=== PATIENT | female | born 1960 | race Caucasian/White ===

== ENCOUNTER 2024-09-19 21:44 | Inpatient (IN) | payer MEDICARE, MEDICAID ==
[~2024-09-19] VITALS: Ht 160 cm; Wt 90.7 kg
[2024-09-19 23:42] LABS: COVID AG,FIA SOURCE NASAL SWAB
[2024-09-19 23:49] LABS: BASOPHILS % (AUTO) 0.6 % (0.0-2.0); EOSINOPHILS % (AUTO) 5.3 % (1.0-6.0); HEMATOCRIT 41.9 % (36-46); HEMOGLOBIN 14.3 g/dL (12.0-16.0); LYMPHOCYTES # (AUTO) 1.3 K/uL (1.0-4.8); MEAN CORPUSCULAR HGB CONC 34.2 G/dL (31.0-37.0); MEAN CORPUSCULAR VOLUME 91 fL (80-100); MONOCYTES # (AUTO) 0.3 K/uL (0.1-1.0); NEUTROPHILS # (AUTO) 2.3 K/uL (1.8-7.7); NEUTROPHILS % (AUTO) 55.1 % (40.0-70.0); PLATELET COUNT (AUTO) 108 K/uL (150-450); RED BLOOD CELL COUNT(AUTO) 4.62 MIL/uL (4.00-5.20); RED CELL DISTRIBUTION WIDTH 13.4 % (11.5-14.5); WHITE BLOOD COUNT (AUTO) 4.1 K/uL (4.5-11.0)
[2024-09-19 23:52] LABS: ANION GAP 7 mmol/L (8-16); CALCIUM, TOTAL 9.1 mg/dL (8.8-10.5); CARBON DIOXIDE 29 mmol/L (22-29); CHLORIDE 103 mmol/L (98-107); CREATININE 0.65 mg/dL (0.60-1.30); GLOMERULAR FILTR. RATE CALC > 60 mL/min (>60); GLUCOSE,RANDOM 105 mg/dL (70-110); POTASSIUM 4.1 mmol/L (3.5-5.1); SODIUM SERUM 139 mmol/L (136-145); UREA NITROGEN, BLOOD 8 mg/dL (7-18)
[2024-09-19 23:54] LABS: SARS-COV2 (COVID) ANTIGEN,FIA Negative (Negative)
[2024-09-19 23:57] LABS: ALCOHOL, BLOOD (SERUM) < 3 mg/dL (0-10)
[2024-09-20 01:42] LABS: PH,URINE DRUG SCREEN 5.5 (5.0-8.0)
[2024-09-20 01:52] LABS: AMPHET/METH SCREEN,URINE NEGATIVE (NEGATIVE); BARBITURATE SCREEN, URINE NEGATIVE (NEGATIVE); BENZODIAZEPINES SCREEN,URINE NEGATIVE (NEGATIVE); CANNABINOID SCREEN,URINE NEGATIVE (NEGATIVE); COCAINE SCREEN,URINE NEGATIVE (NEGATIVE); METHADONE SCREEN, URINE NEGATIVE (NEGATIVE); OPIATE SCREEN,URINE NEGATIVE (NEGATIVE); PHENCYCLIDINE SCREEN,URINE NEGATIVE (NEGATIVE)
[2024-09-20 01:55] LABS: ALCOHOL, URINE DRUG SCREEN NEGATIVE (NEGATIVE)
[2024-09-20] MEDS ORDERED: MAGNESIUM HYDROXIDE SUSPENSION 30 ML UDCUP PO PRN (06:00)
[2024-09-20] MEDS ORDERED: HALOPERIDOL 5 MG TABLET PO PRN (06:00)
[2024-09-20] MEDS ORDERED: LOPERAMIDE HCL 2 MG CAPSULE PO PRN (06:00)
[2024-09-20] MEDS ORDERED: MAG HYDROX/ALUMINUM HYD/SIMETH ES 30 ML SUSPENSION UDCUP PO PRN (06:00)
[2024-09-20] MEDS ORDERED: LORazepam 2 MG TABLET PO PRN (06:00)
[2024-09-20 06:25] LABS: APPEARANCE,URINE CLEAR (CLEAR); BILIRUBIN,URINE NEGATIVE (NEGATIVE); COLOR,URINE YELLOW (YELLOW); GLUCOSE, URINE (UA) NEGATIVE (NEGATIVE); KETONES,URINE TRACE mg/dL (NEGATIVE); LEUKOCYTE ESTERASE ,URINE SMALL (NEGATIVE); NITRATE,URINE NEGATIVE (NEGATIVE); OCCULT BLOOD,URINE NEGATIVE (NEGATIVE); PH,URINE 6.5 (5.0-8.0); PROTEIN,URINE TRACE mg/dL (NEGATIVE); SPECIFIC GRAVITIY, URINE 1.023 (1.003-1.030); UROBILINOGEN,URINE <=1.0 mg/dL (<=1.0)
[2024-09-20 06:49] LABS: BACTERIA,URINE None Seen /HPF (None Seen); RBC,URINE None Seen /HPF (0-2); SQUAMOUS EPITHELIAL CELL,UR Few /LPF (None Seen)
[2024-09-20 08:00] VITALS: O2SAT 96
[2024-09-20] MEDS: ACETAMINOPHEN 325 MG TABLET PO PRN (09:22)
[2024-09-20 12:45] VITALS: BP 116/60; PULSE 77; RESP 18; TEMP 97.8; O2SAT 96
[2024-09-20 20:59] VITALS: RESP 18
[2024-09-21 01:04] VITALS: BP 132/65; PULSE 83; RESP 16; TEMP 97.2; O2SAT 97
[2024-09-21] MEDS ORDERED: ONDANSETRON 4 MG TABLET PO PRN (06:45)
[2024-09-21] MEDS ORDERED: LOPERAMIDE HCL 2 MG CAPSULE PO PRN (06:45)
[2024-09-21] MEDS ORDERED: ALBUTEROL SULFATE HFA 90 MCG/PUFF 8 GM INHALER IH PRN (06:45)
[2024-09-21] MEDS ORDERED: CloNIDine HCL 0.1 MG TABLET PO PRN (06:45)
[2024-09-21] MEDS ORDERED: MAGNESIUM HYDROXIDE SUSPENSION 30 ML UDCUP PO PRN (06:45)
[2024-09-21] MEDS ORDERED: DOCUSATE SODIUM 100 MG CAPSULE PO PRN (06:45)
[2024-09-21] MEDS ORDERED: MAG HYDROX/ALUMINUM HYD/SIMETH ES 30 ML SUSPENSION UDCUP PO PRN (06:45)
[2024-09-21] MEDS ORDERED: GuaiFENesin/D-METHORPHAN [SUGAR-FREE] 200-20MG/10 ML SYRUP UDCUP PO PRN (06:45)
[2024-09-21] MEDS ORDERED: IBUPROFEN 400 MG TABLET PO PRN (06:45)
[2024-09-21] MEDS ORDERED: ACETAMINOPHEN 325 MG TABLET PO PRN (06:45)
[2024-09-21 08:06] VITALS: BP_SYST 147; BP_SYST 177; BP_DIAS 90; PULSE 90; RESP 16; TEMP 97.6; O2SAT 96
[2024-09-21] MEDS: INFLUENZA VIRUS VACCINE TVS (6MO+) 2024-25/PF 45 MCG/0.5 ML SYRINGE IM. ONE (17:56)
[2024-09-21] MEDS: PNEUMOCOCCAL VACCINE POLYVALENT 0.5 ML SYRINGE [PPSV23] IM. ONE (17:57)
[2024-09-21 20:07] VITALS: BP 131/78; PULSE 90; RESP 16; TEMP 97.6; O2SAT 97
[2024-09-21 21:28] VITALS: RESP 17
[2024-09-21] MEDS: TraZODone HCL 100 MG TABLET PO SCH (21:53)
[2024-09-21] MEDS: ILOPERIDONE 4 MG TABLET PO SCH (21:54)
[2024-09-21 22:28] VITALS: RESP 16
[2024-09-22 10:06] LABS: HEMOGLOBIN A1C 5.4 % (3.8-5.6)
[2024-09-22 10:31] LABS: THYROID STIMULATING HORMONE 1.09 uIU/mL (0.36-3.74)
[2024-09-22 11:01] LABS: CHOL/HDL RATIO 3.2 (3.9-5.7)
[2024-09-22 20:07] VITALS: BP 138/93; PULSE 104; RESP 16; TEMP 97.6; O2SAT 95
[2024-09-23 09:11] VITALS: BP 109/54; PULSE 96; RESP 18; TEMP 97; O2SAT 94
[2024-09-23 12:50] VITALS: BP 115/74; PULSE 120; RESP 17; TEMP 97; O2SAT 96
[2024-09-24 04:30] VITALS: BP 146/86; PULSE 115; RESP 18; TEMP 97.1; O2SAT 95
[2024-09-24] MEDS: NICOTINE 14 MG/24 HOUR PATCH TD PRN (16:46)
[2024-09-24 21:30] VITALS: BP 130/80; PULSE 114; RESP 16; TEMP 97.5; O2SAT 98
[2024-09-24 23:00] VITALS: BP 126/78; PULSE 115; RESP 18; TEMP 97.8; O2SAT 96
[2024-09-25] VITALS (9 sets, daily range): BP systolic 120–147; BP diastolic 52–85; PULSE 86–118; RESP 17–18; TEMP 96.4–98.2; O2SAT 94–99
[2024-09-25] MEDS: ZOLPIDEM TARTRATE 10 MG TABLET PO PRN (02:54)
[2024-09-25] MEDS: CEPHALEXIN MONOHYDRATE 500 MG CAPSULE PO SCH (16:19)
[2024-09-25] MEDS: ZINC OXIDE 20% 30 GM OINTMENT TP SCH (17:00)
[2024-09-26 04:50] VITALS: BP 120/52; PULSE 108; TEMP 96.4; O2SAT 94
[2024-09-26 08:18] VITALS: BP 143/82; PULSE 88; RESP 16; TEMP 97.1; O2SAT 95
[2024-09-26 09:15] LABS: BASOPHILS % (AUTO) 0.6 % (0.0-2.0); EOSINOPHILS % (AUTO) 1.9 % (1.0-6.0); HEMATOCRIT 39.5 % (36-46); HEMOGLOBIN 13.5 g/dL (12.0-16.0); LYMPHOCYTES % (AUTO) 30.6 % (22.0-44.0); MEAN CORPUSCULAR HGB CONC 34.1 G/dL (31.0-37.0); MEAN CORPUSCULAR VOLUME 91 fL (80-100); MONOCYTES # (AUTO) 0.3 K/uL (0.1-1.0); MONOCYTES % (AUTO) 7.7 % (2.0-9.0); NEUTROPHILS # (AUTO) 1.9 K/uL (1.8-7.7); NEUTROPHILS % (AUTO) 59.2 % (40.0-70.0); PLATELET COUNT (AUTO) 100 K/uL (150-450); RED BLOOD CELL COUNT(AUTO) 4.34 MIL/uL (4.00-5.20); RED CELL DISTRIBUTION WIDTH 13.2 % (11.5-14.5); WHITE BLOOD COUNT (AUTO) 3.3 K/uL (4.5-11.0)
[2024-09-26 10:00] LABS: APPEARANCE,URINE CLEAR (CLEAR); BILIRUBIN,URINE NEGATIVE (NEGATIVE); COLOR,URINE LIGHT YELLOW (YELLOW); GLUCOSE, URINE (UA) NEGATIVE (NEGATIVE); KETONES,URINE NEGATIVE (NEGATIVE); LEUKOCYTE ESTERASE ,URINE NEGATIVE (NEGATIVE); NITRATE,URINE NEGATIVE (NEGATIVE); OCCULT BLOOD,URINE NEGATIVE (NEGATIVE); PH,URINE 5.5 (5.0-8.0); PROTEIN,URINE NEGATIVE (NEGATIVE); SPECIFIC GRAVITIY, URINE 1.007 (1.003-1.030); UROBILINOGEN,URINE <=1.0 mg/dL (<=1.0)
[2024-09-26 20:03] VITALS: BP 144/65; PULSE 18; RESP 16; TEMP 98.3; O2SAT 97
[2024-09-27 00:16] VITALS: BP 140/65; PULSE 78; RESP 18; TEMP 98.3; O2SAT 97
[2024-09-27 07:59] VITALS: BP 140/61; PULSE 92; RESP 18; TEMP 97.6; O2SAT 95
[2024-09-27 08:00] VITALS: BP 140/61; PULSE 92; RESP 18; TEMP 97.6; O2SAT 95
[2024-09-27 08:01] VITALS: BP 140/61; PULSE 92; RESP 18; TEMP 97.6; O2SAT 95
[2024-09-27 08:25] LABS: HCG,QUAL URINE NEGATIVE (NEGATIVE)
[2024-09-27 08:39] LABS: ALCOHOL, URINE DRUG SCREEN NEGATIVE (NEGATIVE); AMPHET/METH SCREEN,URINE NEGATIVE (NEGATIVE); BARBITURATE SCREEN, URINE NEGATIVE (NEGATIVE); BENZODIAZEPINES SCREEN,URINE NEGATIVE (NEGATIVE); CANNABINOID SCREEN,URINE NEGATIVE (NEGATIVE); COCAINE SCREEN,URINE NEGATIVE (NEGATIVE); METHADONE SCREEN, URINE NEGATIVE (NEGATIVE); OPIATE SCREEN,URINE NEGATIVE (NEGATIVE); PHENCYCLIDINE SCREEN,URINE NEGATIVE (NEGATIVE)
[2024-09-27 08:50] LABS: PH,URINE DRUG SCREEN 6.5 (5.0-8.0)
[2024-09-27 23:09] VITALS: BP 138/82; PULSE 83; RESP 18; TEMP 98; O2SAT 96
[2024-09-27 23:13] VITALS: BP 138/82; PULSE 83; RESP 18; TEMP 98; O2SAT 96
[2024-09-28 08:08] VITALS: BP 106/60; PULSE 97; RESP 16; TEMP 97.5; O2SAT 96
[2024-09-28 09:16] VITALS: BP 106/60; PULSE 97; RESP 16; TEMP 97.5; O2SAT 99
[2024-09-28 22:02] VITALS: BP 108/73; PULSE 106; RESP 17; TEMP 98; O2SAT 99
[2024-09-29 10:57] VITALS: BP 110/86; PULSE 85; RESP 16; TEMP 96.8; O2SAT 95
[2024-09-29 20:07] VITALS: BP 104/62; PULSE 82; RESP 18; TEMP 97.8; O2SAT 95
[2024-09-30] MEDS ORDERED: ZOLPIDEM TARTRATE 10 MG TABLET PO PRN (08:45)
[2024-09-30] MEDS ORDERED: LORazepam 2 MG TABLET PO PRN (08:45)
[2024-09-30 21:00] VITALS: BP 128/68; PULSE 102; RESP 18; TEMP 97.7; O2SAT 95
[2024-10-01 08:26] VITALS: BP 133/69; PULSE 79; RESP 16; TEMP 97.5; O2SAT 96
[2024-10-01 21:20] VITALS: BP 124/72; PULSE 72; RESP 15; TEMP 97.6; O2SAT 98
[2024-10-02 08:10] VITALS: BP 127/71; PULSE 89; RESP 16; TEMP 97.6; O2SAT 97
[2024-10-02 08:47] VITALS: BP 135/78; PULSE 78; RESP 18
[2024-10-02 20:51] VITALS: RESP 18
[2024-10-02 21:50] VITALS: RESP 18
[2024-10-03 08:18] VITALS: BP 126/70; PULSE 82; RESP 16; TEMP 97.2; O2SAT 99
[2024-10-03 08:31] LABS: HEMOGLOBIN A1C 5.2 % (3.8-5.6)
[2024-10-03 08:45] LABS: CHOL/HDL RATIO 3.1 (3.9-5.7); THYROID STIMULATING HORMONE 1.45 uIU/mL (0.36-3.74)
[2024-10-03 20:00] VITALS: BP 119/60; PULSE 77; RESP 17; TEMP 97.1; O2SAT 96
[2024-10-04 08:24] VITALS: RESP 17
[2024-10-04 20:30] VITALS: BP 123/60; PULSE 82; RESP 16; TEMP 97.6; O2SAT 95
[2024-10-05 10:30] VITALS: RESP 16
[2024-10-05 21:17] VITALS: BP 112/60; PULSE 94; RESP 16; TEMP 97.8; O2SAT 96
[2024-10-06 08:11] VITALS: RESP 18
[2024-10-06 20:38] VITALS: RESP 18
[2024-10-07 07:50] VITALS: RESP 17
[2024-10-07 08:00] VITALS: RESP 18
[2024-10-07 20:06] VITALS: BP 107/65; PULSE 93; RESP 16; TEMP 97.8
[2024-10-07 22:47] VITALS: RESP 18
[2024-10-08 08:10] VITALS: BP 145/72; PULSE 81; RESP 17; TEMP 97.7; O2SAT 96
[2024-10-08] MEDS ORDERED: ILOP4TAB2 PO (09:20)
[2024-10-08] MEDS ORDERED: TRAZ-257 PO (09:20)
[2024-10-08] MEDS ORDERED: ZINC56.713 TP (09:26)
[2024-10-08] MEDS ORDERED: ZINC113C10 TP (09:33)
[2024-10-08 11:56] LABS: GLUCOMETER DEV NAME(LOC) POC.BV; POC SARS-COV2 AG, FIA NEGATIVE (NEGATIVE)
== END 2024-10-08 16:48 | DRG 885 ==
LOC: EMS 21:44 → B2X 09-20 11:28
PROVIDERS: ADMIT Psychiatry & Neurology Psychiatry; ATTEND Psychiatry & Neurology Psychiatry
PROC: GZHZZZZ Group Psychotherapy (ICD-10-PCS; principal; 2024-09-21)
DX: F20.0 Paranoid schizophrenia (principal); B19.10 Unspecified viral hepatitis B without hepatic coma; N39.0 Urinary tract infection, site not specified; I85.00 Esophageal varices without bleeding; B19.20 Unspecified viral hepatitis C without hepatic coma; J45.909 Unspecified asthma, uncomplicated; F10.10 Alcohol abuse, uncomplicated; D72.819 Decreased white blood cell count, unspecified; E78.00 Pure hypercholesterolemia, unspecified; Z20.822 Contact with and (suspected) exposure to COVID-19; F32.A Depression, unspecified; G47.00 Insomnia, unspecified; Z79.899 Other long term (current) drug therapy; Z88.8 Allergy status to other drugs, medicaments and biological substances; Y90.9 Presence of alcohol in blood, level not specified
CPT/HCPCS: 80048; 80061; 80307; 81001; 81003; 83036; 83880; 84443; 84703; 85025; 87081; 87481; 99285; G0480

== ENCOUNTER 2024-09-23 16:59 | Emergency (ER) | payer MEDICARE, MEDICAID ==
[~2024-09-23] VITALS: Ht 165.1 cm; Wt 77.3 kg
[2024-09-23 18:41] VITALS: TEMP 98.1
[2024-09-23 19:36] LABS: BASOPHILS % (AUTO) 0.2 % (0.0-2.0); EOSINOPHILS % (AUTO) 0.2 % (1.0-6.0); HEMATOCRIT 41.1 % (36-46); LYMPHOCYTES # (AUTO) 0.5 K/uL (1.0-4.8); LYMPHOCYTES % (AUTO) 10.4 % (22.0-44.0); MEAN CORPUSCULAR HEMOGLOBIN 30.9 pg (26.0-34.0); MEAN CORPUSCULAR HGB CONC 34.1 G/dL (31.0-37.0); MEAN CORPUSCULAR VOLUME 91 fL (80-100); MONOCYTES # (AUTO) 0.4 K/uL (0.1-1.0); MONOCYTES % (AUTO) 6.9 % (2.0-9.0); NEUTROPHILS # (AUTO) 4.2 K/uL (1.8-7.7); NEUTROPHILS % (AUTO) 82.3 % (40.0-70.0); PLATELET COUNT (AUTO) 98 K/uL (150-450); RED BLOOD CELL COUNT(AUTO) 4.53 MIL/uL (4.00-5.20); RED CELL DISTRIBUTION WIDTH 13.6 % (11.5-14.5); WHITE BLOOD COUNT (AUTO) 5.2 K/uL (4.5-11.0)
[2024-09-23 19:38] LABS: ANION GAP 11 mmol/L (8-16); CALCIUM, TOTAL 9.4 mg/dL (8.8-10.5); CARBON DIOXIDE 24 mmol/L (22-29); CHLORIDE 102 mmol/L (98-107); CREATININE 0.77 mg/dL (0.60-1.30); GLOMERULAR FILTR. RATE CALC > 60 mL/min (>60); GLUCOSE,RANDOM 136 mg/dL (70-110); POTASSIUM 3.5 mmol/L (3.5-5.1); SODIUM SERUM 137 mmol/L (136-145); UREA NITROGEN, BLOOD 12 mg/dL (7-18)
[2024-09-23 19:48] LABS: TROPONIN I-HIGH SENSITIVITY 4 ng/L (<51)
[2024-09-23] MEDS ORDERED: LORazepam 2 MG/ML VIAL ONE (19:49)
[2024-09-23] MEDS ORDERED: HALOPERIDOL LACTATE 5 MG/ML VIAL ONE (19:49)
[2024-09-23] MEDS ORDERED: DiphenhydrAMINE HCL 50 MG/ML VIAL ONE (19:49)
[2024-09-23] MEDS: LORazepam 2 MG/ML VIAL IM ONE (19:50)
[2024-09-23] MEDS: DiphenhydrAMINE HCL 50 MG/ML VIAL IM ONE (19:50)
[2024-09-23] MEDS: HALOPERIDOL LACTATE 5 MG/ML VIAL IM ONE (19:50)
[2024-09-24 01:22] VITALS: BP 133/100; PULSE 86; RESP 16; O2SAT 98
== END 2024-09-24 01:42 ==
LOC: EMS 17:01
DX: Z00.8 Encounter for other general examination (principal); R00.0 Tachycardia, unspecified; J45.909 Unspecified asthma, uncomplicated; E78.00 Pure hypercholesterolemia, unspecified; F20.9 Schizophrenia, unspecified; Z88.8 Allergy status to other drugs, medicaments and biological substances
CPT/HCPCS: 99285; 71045; 80048; 84484; 85025; 36415; 93005; 96372; J1200; J1630; J2060

== ENCOUNTER 2024-09-24 02:28 | Emergency (ER) | payer MEDICARE, MEDICAID ==
[~2024-09-24] VITALS: Ht 167.6 cm; Wt 85.0 kg
[2024-09-24] MEDS: SODIUM CHLORIDE 0.9% 1,000 ML IV ONE (03:09)
[2024-09-24] MEDS: LORazepam 2 MG/ML VIAL IVP ONE (03:38)
[2024-09-24 03:46] VITALS: TEMP 98.5
[2024-09-24 03:58] VITALS: BP 124/71; PULSE 105; RESP 18; O2SAT 99
== END 2024-09-24 04:20 ==
LOC: EMS 02:31
DX: R00.0 Tachycardia, unspecified (principal); I95.9 Hypotension, unspecified; J45.909 Unspecified asthma, uncomplicated; E78.00 Pure hypercholesterolemia, unspecified; F20.9 Schizophrenia, unspecified
CPT/HCPCS: 99283; 96374; 96361; J2060; J7030